=== PATIENT | female | born 1965 | race American Indian/Alaskan Native ===

== ENCOUNTER 2020-06-13 11:16 | Outpatient (CLI) | payer OTHER ==
--- NOTE | 2020-06-13 13:03 | XRay Report ---
BILATERAL KNEES 4 VIEWS INDICATION / CLINICAL INFORMATION: RIGHT/LEFT KNEE PAIN. COMPARISON: None available. FINDINGS: Minimal degenerative change in each knee, with very slight hypertrophic spurring medially. No fractur e or other acute abnormality. Lateral views show no significant effusion or hemarthrosis in either knee. Signer Name: Andre Kovacs MD Signed: 06/13/2020 12:59 PM Workstation Name: [email or web address]
== END 2020-06-13 11:17 | disposition home or self-care (01) ==
LOC: XRAY 11:16
PROVIDERS: ATTEND Internal Medicine
DX: M17.0 Bilateral primary osteoarthritis of knee (principal); M54.5 Low back pain; J45.909 Unspecified asthma, uncomplicated; F41.9 Anxiety disorder, unspecified; M54.30 Sciatica, unspecified side